=== PATIENT | male | born 1970 | race Caucasian/White ===

== ENCOUNTER 2017-05-31 17:48 | Emergency (ER) | payer BC ==
[~2017-05-31] VITALS: Wt 80.0 kg
[2017-05-31] MEDS ORDERED: ONDANSETRON (ODT) 4 MG TAB ODT STA (18:05)
[2017-05-31] MEDS ORDERED: FAMOTIDINE 20 MG TAB PO ONE (18:30)
[2017-05-31] MEDS ORDERED: LIDOCAINE/MYLANTA 40 ML BTL PO ONE (18:30)
[2017-05-31 18:58] LABS: BASOPHIL # 0.1 10^3/ul (0.0-0.1); BASOPHILS % 0.4 % (0.0-2.0); EOSINOPHILS % 0.3 % (0.0-7.0); HEMATOCRIT 50.2 % (42.0-52.0); HEMOGLOBIN 16.6 g/dl (14.0-18.0); LYMPHOCYTES % 14.8 % (15.0-51.0); MEAN CORPUSCULAR HEMOGLOBIN 29.6 pg (29.0-33.0); MEAN CORPUSCULAR HGB CONC 33.1 g/dl (32.0-37.0); MEAN CORPUSCULAR VOLUME 89.6 fl (82.0-101.0); MEAN PLATELET VOLUME 9.4 fl (7.4-10.4); MONOCYTES % 7.2 % (0.0-11.0); NEUTROPHIL # 10.4 10^3/ul (1.6-7.5); NEUTROPHILS % 76.9 % (39.0-77.0); PLATELET COUNT 404 10^3/UL (140-415); RED CELL DISTRIBUTION WIDTH 13.2 % (11.5-14.5); WHITE BLOOD COUNT 13.5 10^3/ul (4.8-10.8)
[2017-05-31 19:15] LABS: ADD UMIC YES; UR ASCORBIC ACID NEGATIVE (NEGATIVE); UR BILIRUBIN (Dip) NEGATIVE (NEGATIVE); UR BLOOD (Dip) 1+ mg/dL (NEGATIVE); UR CLARITY CLEAR (CLEAR); UR COLOR YELLOW (YELLOW); UR GLUCOSE (Dip) NEGATIVE (NEGATIVE); UR KETONES (Dip) TRACE mg/dL (NEGATIVE); UR LEUKOCYTE ESTERASE (Dip) NEGATIVE Leu/ul (NEGATIVE); UR MUCUS FEW /HPF (NONE SEEN); UR NITRITE (Dip) NEGATIVE (NEGATIVE); UR RBC 3 /HPF (0-5); UR SPECIFIC GRAVITY (Dip) 1.019 (1.003-1.030); UR TOTAL PROTEIN (Dip) NEGATIVE (NEGATIVE); UR UROBILINOGEN (Dip) 2+ mg/dL (NEGATIVE)
[2017-05-31 19:19] LABS: ALBUMIN 4.5 g/dl (3.3-4.9); ALBUMIN/GLOBULIN RATIO 1.18; BILIRUBIN,INDIRECT 1.1 mg/dl (0-1.1); BILIRUBIN,TOTAL 1.1 mg/dl (0.2-1.3); CREATININE 1.24 mg/dl (0.61-1.24); POTASSIUM 4.3 mmol/L (3.5-5.1); TOTAL PROTEIN 8.3 g/dl (6.1-8.1)
--- NOTE | 2017-05-31 19:20 | RADRPT ---
PROCEDURE: US Abdomen. CLINICAL INDICATION: abdominal pain TECHNIQUE: Multiple real-time images were acquired of the patient's right upper quadrant abdomen a nd retroperitoneum utilizing a high resolution transducer. COMPARISON: None FINDINGS: The liver demonstrates normal echogenicity. The liver is normal in size and no focal solid lesions are seen. The liver measures 17.3 cm in length. The portal vein is patent with normal direction of f low. No intrahepatic biliary dilatation is seen. Multiple calcified gallstones are identified within the gallbladder. There is no pericholecystic fl uid or gallbladder wall thickening. The common bile duct measures 3 mm in maximal dimension. The visualized portions of the pancreas are unremarkable. The tail of the pancreas is not seen. There is a small amount of free fluid in Morison's pouch. The right kidney is normal in size, and demonstrate normal echogenicity and cortical thickness. The right kidney measures 11.2 cm in long dimension. There is no evidence of hydronephrosis. There are no kidney stones. RPTAT: AA IMPRESSION: Cholelithiasis. Small amount of free fluid in Morison's pouch. .Dusty Coppola MD, MD Date Time Electronically viewed and signed by .Dusty Coppola MD, MD on 05/31/2017 19:19 .S/
[2017-05-31] MEDS ORDERED: IOHEXOL 300MG/ML 150 ML BTL ONE (20:14)
[2017-05-31] MEDS ORDERED: SOD CHLORIDE 0.9% 100 ML ONE (20:14)
--- NOTE | 2017-05-31 21:06 | RADRPT ---
PROCEDURE: CT abdomen and pelvis with contrast. CLINICAL INDICATION: abdominal pain TECHNIQUE: CT scan of the abdomen and pelvis with contrast [facility] The patient was scanned after administration of 100 cc of Omnipaque-300 intravenous contrast. Sagittal and coronal reformatted images were obtained from the axial source images. One or more of the following dose reduction techniques were used: - Automated exposure control. - Adjustment of the mA and/or kV according to patient size. - Use of iterative reconstruction technique. DLP 953.9 mGycm. CTDIvol 14.9 mGy COMPARISON: None. FINDINGS: This trace basilar atelectasis. There is a trace hiatus hernia. There is normal density and enhancement of the liver with no focal lesion or biliary ductal dilatati on. The gallbladder is unremarkable without inflammation, and the portal vein is intact without thr ombus. The spleen is unremarkable without mass. The adrenal glands are within normal limits without mass. The kidneys enhance symmetrically bilaterally without hydronephrosis or perinephric stranding. The pancreas is unremarkable without focal lesion or surrounding inflammatory changes. There is no bowel obstruction or focal bowel inflammation. The appendix is unremarkable. There is no free air. There is no free fluid. There are no enlarged lymph nodes. There is aortic atherosclerosis without aneurysmal dilatation. Degenerative changes are seen in t he lumbar spine with no acute osseous abnormality. The prostate is at the upper limits of normal in size. Follicular changes seen within the ovaries bi laterally. Trace fluid is seen within the cul-de-sac of indeterminate significance. IMPRESSION: No evidence of bowel obstruction or inflammation. There is no appendicitis. There is a trace hiatus hernia. Atherosclerotic calcifications are seen involving the aorta. RPTAT: AA .Mendel Basilio MD, MD Date Time Electronically viewed and signed by .Mendel Basilio MD, MD on 05/31/2017 21:06 .Altaf/
[2017-05-31] MEDS ORDERED: DICY10CA60 PO (21:29)
[2017-05-31] MEDS ORDERED: ONDA4TAB14 PO (21:29)
[2017-05-31] MEDS ORDERED: FAMO-96 PO (21:29)
[2017-05-31 21:35] VITALS: BP 139/69; PULSE 62; RESP 18; TEMP 98
--- NOTE | 2017-05-31 22:10 | ERD ---
ER Documentation Chief Complaint Date/Time DATE: 05/31/17 TIME: 22:02 Chief Complaint ABD PAIN X 4 DAYS HPI 46-year-old male patient with no significant past medical history presents to the ED complaining of abdominal pain that started 4 days ago. Reports that it is mainly in the epigastric region. Denies any chest pain, shortness of breath , wheezing, fever, chills, diarrhea, vomiting. Patient has normal daily bowel movements. Reports that he tried taking omeprazole with slight relief of his symptoms. Reports that the pain is worse with eating food. ROS All systems reviewed and are negative except as per history of present illness. Medications Home Meds Active Scripts Ondansetron (Ondansetron Odt) 4 Mg Tab.rapdis, 4 MG PO Q6H Y for NAUSEA AND/OR VOMITING, #10 TAB Prov:CASIE NAVARRO PA-C 05/31/17 Famotidine* (Pepcid*) 20 Mg Tablet, 20 MG PO BID, #30 TAB Prov:CASIE NAVARRO PA-C 05/31/17 Dicyclomine Hcl* (Bentyl*) 10 Mg Capsule, 10 MG PO QID, #20 CAP Prov:CASIE NAVARRO PA-C 05/31/17 Allergies Allergies: Coded Allergies: No Known Allergy (Unverified , 05/31/17) PMhx/Soc Medical and Surgical Hx: pt denies Medical Hx, pt denies Surgical Hx Hx Alcohol Use: No Hx Substance Use: No Hx Tobacco Use: No Smoking Status: Never smoker Physical Exam Vitals Vital Signs Date Time Temp Pulse Resp B/P Pulse Ox O2 Delivery O2 Flow Rate FiO2 05/31/17 21:35 98.0 62 18 139/69 98 Room Air 05/31/17 17:51 98.0 109 18 168/93 99 Physical Exam Const: [id number]-eoo-[id number], well-nourished. In no acute distress. Head: Atraumatic, normocephalic Eyes: Normal Conjunctiva without injection. No purulent discharge. ENT: Normal external ear, nose. Moist oropharynx without tonsillar exudates. Non -erythematous pharynx. Uvula midline. No drooling. No trismus. Neck: No cervical midline tenderness. Full range of motion. No meningismus. No cervical lymphadenopathy. No JVD. Resp: Clear to auscultation bilaterally. No wheezing, rhonchi, rales, or crackles. No accessory muscle use. No retractions. Cardio: Regular rate and rhythm. No murmurs, rubs or gallops. Abd: Soft, nontender, non distended. Normal bowel sounds. No palpable masses. No rebound tenderness. No guarding. Negative McBurney's point. Negative psoas sign. Negative obturator sign. Skin: No petechiae or rashes Back: No midline tenderness. No CVA tenderness. Ext: No cyanosis, or edema. Neur: Awake and alert. Normal gait. Normal coordination. Psych: Normal Mood and Affect Result Diagram: 05/31/17 1838 05/31/17 183 Results 24 hrs Laboratory Tests Test 05/31/17 18:20 05/31/17 18:38 Urine Color YELLOW Urine Clarity CLEAR Urine pH 5.0 Urine Specific [place] 1.019 Urine Ketones TRACEmg/dL Urine Nitrite NEGATIVEmg/dL Urine Bilirubin NEGATIVEmg/dL Urine Urobilinogen 2+mg/dL Urine Leukocyte Esterase NEGATIVELeu/ul Urine Microscopic RBC 3/HPF Urine Microscopic WBC 3/HPF Urine Mucus FEW/HPF Urine Hemoglobin 1+mg/dL Urine Glucose NEGATIVEmg/dL Urine Total Protein NEGATIVEmg/dl White Blood Count 13.510^3/ul Red Blood Count 5.6010^6/ul Hemoglobin 16.6g/dl Hematocrit 50.2% Mean Corpuscular Volume 89.6fl Mean Corpuscular Hemoglobin 29.6pg Mean Corpuscular Hemoglobin Concent 33.1g/dl Red Cell Distribution Width 13.2% Platelet Count 90493^3/UL Mean Platelet Volume 9.4fl Neutrophils % 76.9% Lymphocytes % 14.8% Monocytes % 7.2% Eosinophils % 0.3% Basophils % 0.4% Nucleated Red Blood Cells % 0.0/100WBC Neutrophils # 10.410^3/ul Lymphocytes # 2.010^3/ul Monocytes # 1.010^3/ul Eosinophils # 0.010^3/ul Basophils # 0.110^3/ul Nucleated Red Blood Cells # 0.010^3/ul Sodium Level 146mmol/L Potassium Level 4.3mmol/L Chloride Level 101mmol/L Carbon Dioxide Level 30mmol/L Anion Gap 19 Blood Urea Nitrogen 20mg/dl Creatinine 1.24mg/dl Glucose Level 119mg/dl Calcium Level 10.0mg/dl Total Bilirubin 1.1mg/dl Direct Bilirubin 0.00mg/dl Indirect Bilirubin 1.1mg/dl Aspartate Amino Transf (AST/SGOT) 130IU/L Alanine Aminotransferase (ALT/SGPT) 101IU/L Alkaline Phosphatase 117IU/L Total Protein 8.3g/dl Albumin 4.5g/dl Globulin 3.80g/dl Albumin/Globulin Ratio 1.18 Lipase 49U/L Current Medications Medications (Trade) Dose Ordered Sig/Leora Route PRN Reason Start Time Stop Time Status Last Admin Dose Admin Miscellaneous Medication (Gi Cocktail (2)) 40 ml ONCE ONCE PO 05/31/17 18:30 05/31/17 18:31 DC 05/31/17 18:55 Ondansetron HCl (Zofran Odt) 4 mg ONCE STAT ODT 05/31/17 18:05 05/31/17 18:08 DC 05/31/17 18:55 Famotidine (Pepcid) 20 mg ONCE ONCE PO 05/31/17 18:30 05/31/17 18:31 DC 05/31/17 18:55 IV Flush 10 ml 10 ml STK-MED ONCE .ROUTE 05/31/17 20:14 05/31/17 20:15 DC 05/31/17 20:22 Sodium Chloride (NS) 100 ml @ ud STK-MED ONCE .ROUTE 05/31/17 20:14 05/31/17 20:15 DC 05/31/17 20:22 Iohexol (Omnipaque 300mg/ ml) 150 ml STK-MED ONCE .ROUTE 05/31/17 20:14 05/31/17 20:15 DC 05/31/17 20:22 Procedures/MDM 46-year-old male patient with no significant past medical history presents the ED complaining of upper quadrant abdominal pain that started 4 days ago. Patient is afebrile and nontoxic-appearing. Patient has normal vital signs. Patient was further worked up with CBC, CMP, lipase, UA, EKG, gallbladder ultrasound, CT of abdomen pelvis with contrast. Patient's pain and symptoms have improved after treatment with famotidine, Zofran, GI cocktail. CBC: Leukocytosis 13.5. No e/o of systemic infection. No e/o anemia. CMP: No e/o severe acidosis, alkalosis, renal failure, diabetic ketoacidosis, slightly elevated transaminitis Lipase within normal limits. Urine: No leukocyte esterase, no nitrites, no hematuria. PROCEDURE: US Abdomen. CLINICAL INDICATION: abdominal pain TECHNIQUE: Multiple real-time images were acquired of the patient's right upper quadrant abdomen and retroperitoneum utilizing a high resolution transducer. COMPARISON: None FINDINGS: The liver demonstrates normal echogenicity. The liver is normal in size and no focal solid lesions are seen. The liver measures 17.3 cm in length. The portal vein is patent with normal direction of flow. No intrahepatic biliary dilatation is seen. Multiple calcified gallstones are identified within the gallbladder. There is no pericholecystic fluid or gallbladder wall thickening. The common bile duct measures 3 mm in maximal dimension. The visualized portions of the pancreas are unremarkable. The tail of the pancreas is not seen. There is a small amount of free fluid in Morison's pouch. The right kidney is normal in size, and demonstrate normal echogenicity and cortical thickness. The right kidney measures 11.2 cm in long dimension. There is no evidence of hydronephrosis. There are no kidney stones. RPTAT: AA IMPRESSION: Cholelithiasis. Small amount of free fluid in Morison's pouch. PROCEDURE: CT abdomen and pelvis with contrast. CLINICAL INDICATION: abdominal pain TECHNIQUE: CT scan of the abdomen and pelvis with contrast was performed on a multi-slice CT scanner . The patient was scanned after administration of 100 cc of Omnipaque-300 intravenous contrast. Sagittal and coronal reformatted images were obtained from the axial source images. One or more of the following dose reduction techniques were used: - Automated exposure control. - Adjustment of the mA and/or kV according to patient size. - Use of iterative reconstruction technique. DLP 953.9 mGycm. CTDIvol 14.9 mGy COMPARISON: None. FINDINGS: This trace basilar atelectasis. There is a trace hiatus hernia. There is normal density and enhancement of the liver with no focal lesion or biliary ductal dilatation. The gallbladder is unremarkable without inflammation , and the portal vein is intact without thrombus. The spleen is unremarkable without mass. The adrenal glands are within normal limits without mass. The kidneys enhance symmetrically bilaterally without hydronephrosis or perinephric stranding. The pancreas is unremarkable without focal lesion or surrounding inflammatory changes. There is no bowel obstruction or focal bowel inflammation. The appendix is unremarkable. There is no free air. There is no free fluid. There are no enlarged lymph nodes. There is aortic atherosclerosis without aneurysmal dilatation. Degenerative changes are seen in the lumbar spine with no acute osseous abnormality. The prostate is at the upper limits of normal in size. Follicular changes seen within the ovaries bilaterally. Trace fluid is seen within the cul-de-sac of indeterminate significance. IMPRESSION: No evidence of bowel obstruction or inflammation. There is no appendicitis. There is a trace hiatus hernia. Atherosclerotic calcifications are seen involving the aorta. EKG reviewed and interpreted by Dr. Hughes Rate/Rhythm: [98 bpm, Normal Sinus Rhythm] No ectopy, no ST elevations, normal axis. QRS, ST, T-waves: [No changes consistent w/ acute ischemia] Impression: [No evidence of ischemia or arrhythmia] Low suspicion for acute myocardial infarction, pneumothorax, pneumonia, cardiac tamponade, pulmonary embolism, AAA, aortic dissection, Boerhaave's syndrome, cardiac dysrhythmias,meningitis, intracranial bleed, seizure, stroke, TIA or other emergent conditions. The Morison's pouch noted on the gallbladder ultrasound was discussed with supervising physician, Dr. Efrem Mayer who stated that we should proceed with a CT of the abdomen and pelvis. CT of the abdomen and pelvis did not show any acute abdomen at this time. A differential diagnosis considered includes but is not limited to gastritis, GERD, peptic ulcer disease, cholecystitis, choledocholithiasis, cholangitis, pancreatitis, appendicitis, bowel obstruction, ileus, volvulus, nephrolithiasis, pyelonephritis, hepatitis, perforated viscus, diverticulitis, abdominal hernia, acute abdomen, mesenteric ischemia or other emergent conditions. 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 Instructed patient to return to the ED sooner for any worsening symptoms. Patient's questions were answered. Patient understood and agreed with discharge plan. Patient discharged stable. Departure Diagnosis: Primary Impression: Abdominal pain Abdominal location: unspecified location Qualified Code: R10.9 - Abdominal pain, unspecified location Condition: Stable Patient Instructions: What Are Gallstones?, Biliary Colic With Gallstone ( Confirmed) Referrals: ANISH CASTLE (PCP) [facility] YOU HAVE RECEIVED A MEDICAL SCREENING EXAM AND THE RESULTS INDICATE THAT YOU DO NOT HAVE A CONDITION THAT REQUIRES URGENT TREATMENT IN THE EMERGENCY DEPARTMENT. FURTHER EVALUATION AND TREATMENT OF YOUR CONDITION CAN WAIT UNTIL YOU ARE SEEN IN YOUR DOCTORS OFFICE WITHIN THE NEXT 1-2 DAYS. IT IS YOUR RESPONSIBILITY TO MAKE AN APPOINTMENT FOR FOLOW-UP CARE. IF YOU HAVE A PRIMARY DOCTOR --you should call your primary doctor and schedule an appointment IF YOU DO NOT HAVE A PRIMARY DOCTOR YOU CAN CALL OUR PHYSICIAN REFERRAL HOTLINE AT IF YOU CAN NOT AFFORD TO SEE A PHYSICIAN YOU CAN CHOSE FROM THE FOLLOWING [facility] [address] [facility]. [facility] [address] [facility]. [facility] [address] [facility] [facility] [address] [facility]. [facility] [address] [facility]. [facility] [address] [facility]. [facility] YOU HAVE RECEIVED A MEDICAL SCREENING EXAM AND THE RESULTS INDICATE THAT YOU DO NOT HAVE A CONDITION THAT REQUIRES URGENT TREATMENT IN THE EMERGENCY DEPARTMENT. FURTHER EVALUATION AND TREATMENT OF YOUR CONDITION CAN WAIT UNTIL YOU ARE SEEN IN YOUR DOCTORS OFFICE WITHIN THE NEXT 1-2 DAYS. IT IS YOUR RESPONSIBILITY TO MAKE AN APPOINTMENT FOR FOLOW-UP CARE. IF YOU HAVE A PRIMARY DOCTOR --you should call your primary doctor and schedule and appointment IF YOU DO NOT HAVE A PRIMARY DOCTOR YOU CAN CALL OUR PHYSICIAN REFERRAL HOTLINE AT . IF YOU CAN NOT AFFORD TO SEE A PHYSICIAN YOU CAN CHOSE FROM THE FOLLOWING [facility] INSTITUTIONS: [facility] [id number] [place] [address] [facility] [address] [place] [address] [facility] + [facility] [address] [place] [address] [facility] URGENT CARE/SPECIALTIES Additional Instructions: Call your primary care doctor TOMORROW for an appointment during the next 2-3 days for a referral to see a general surgeon.See the doctor sooner or return here if your condition worsens before your appointment time -fever, worsening abdominal pain, worsening vomiting, etc. CASIE NAVARRO PA-C May 31, 2017 22:10
== END 2017-05-31 21:35 | disposition home or self-care (01) ==
LOC: FTE 17:48
DX: R10.13 Epigastric pain (principal)
CPT/HCPCS: 36415; 74177; 76705; 80053; 81001; 83690; 85025; 93005; Q9967; Z7502; Z7610

== ENCOUNTER 2017-11-21 18:50 | Emergency (ER) | END 2017-11-21 20:31 | disposition home or self-care (01) ==

== ENCOUNTER 2018-01-09 07:49 | Day surgery (SDC) | END 2018-01-09 14:05 | disposition home or self-care (01) ==